=== PATIENT | female | born 1955 | race African-American/Black ===

== ENCOUNTER 2016-12-23 22:03 | Emergency (ER) | payer MEDICAID ==
[~2016-12-23] VITALS: Ht 160 cm; Wt 87.0 kg
[~2016-12-23 22:03] MED LIST: ALBU2SYR PO
[2016-12-24] MEDS ORDERED: CLINDAMYCIN HCL 150MG CAPSULE PO STA (01:36)
[2016-12-24] MEDS ORDERED: ACETAMINOPHEN WITH CODEINE 300/30MG TABLET PO ONE (01:45)
[2016-12-24 02:04] VITALS: BP 166/94
== END 2016-12-24 02:10 | disposition home or self-care (01) ==
LOC: ER 22:03
DX: L03.031 Cellulitis of right toe (principal); J45.909 Unspecified asthma, uncomplicated
CPT/HCPCS: 99283